=== PATIENT | female | born 1985 | race American Indian/Alaskan Native ===

== ENCOUNTER 2020-09-12 11:08 | Day surgery (SDC) | payer OTHER ==
[2020-09-12 12:16] VITALS: BP 104/67; PULSE 84; TEMP 98.8
[2020-09-12] MEDS ORDERED: IRON SUCROSE INJECTION 200 MG in SODIUM CHLORIDE 100 ML IVPB ONE (12:30)
== END 2020-09-12 13:40 | disposition home or self-care (01) ==
LOC: JINFUSION 11:08 → J7W 11:16 → JINFUSION 13:40
PROVIDERS: ATTEND Internal Medicine Hematology & Oncology
PROC: 3E033GC Introduction of Other Therapeutic Substance into Peripheral Vein, Percutaneous Approach (ICD-10-PCS; principal; 2020-09-12)
DX: D50.9 Iron deficiency anemia, unspecified (principal)
CPT/HCPCS: 96365; J1756

== ENCOUNTER 2020-09-19 08:34 | Day surgery (SDC) | payer OTHER ==
[2020-09-19] MEDS ORDERED: IRON SUCROSE INJECTION 200 MG in SODIUM CHLORIDE 100 ML IVPB ONE (09:00)
[2020-09-19 10:34] VITALS: TEMP 98.3
[2020-09-19 11:20] VITALS: BP 109/58; PULSE 79
== END 2020-09-19 11:21 | disposition home or self-care (01) ==
LOC: JINFUSION 08:34 → J7W 08:34 → JINFUSION 11:21
PROVIDERS: ATTEND Internal Medicine Hematology & Oncology
PROC: 3E033GC Introduction of Other Therapeutic Substance into Peripheral Vein, Percutaneous Approach (ICD-10-PCS; principal; 2020-09-19)
DX: D50.9 Iron deficiency anemia, unspecified (principal)
CPT/HCPCS: 96365; J1756

== ENCOUNTER 2020-09-26 08:21 | Day surgery (SDC) | payer OTHER ==
[~2020-09-26 08:21] MED LIST: IRON SUCROSE INJECTION 200 MG in SODIUM CHLORIDE 100 ML IVPB ONE
[2020-09-26 08:57] VITALS: BP 113/69; PULSE 86; TEMP 98
== END 2020-09-26 10:16 | disposition home or self-care (01) ==
LOC: JINFUSION 08:21 → J7W 08:22 → JINFUSION 10:16
PROVIDERS: ATTEND Internal Medicine Hematology & Oncology
PROC: 3E033GC Introduction of Other Therapeutic Substance into Peripheral Vein, Percutaneous Approach (ICD-10-PCS; principal; 2020-09-26)
DX: D50.9 Iron deficiency anemia, unspecified (principal)
CPT/HCPCS: 96365; J1756

== ENCOUNTER 2020-10-03 08:13 | Day surgery (SDC) | payer OTHER ==
[2020-10-03 10:38] VITALS: BP 118/73; PULSE 83; TEMP 98.1
== END 2020-10-03 11:00 | disposition home or self-care (01) ==
LOC: JINFUSION 08:13 → J7W 08:14 → JINFUSION 11:00
PROVIDERS: ATTEND Internal Medicine Hematology & Oncology
PROC: 3E033GC Introduction of Other Therapeutic Substance into Peripheral Vein, Percutaneous Approach (ICD-10-PCS; principal; 2020-10-03)
DX: O99.013 Anemia complicating pregnancy, third trimester (principal); D50.9 Iron deficiency anemia, unspecified; Z3A.41 41 weeks gestation of pregnancy
CPT/HCPCS: 96365; J1756